=== PATIENT | female | born 1960 | race Caucasian/White ===

== ENCOUNTER 2021-02-09 08:50 | Outpatient (REF) | payer OTHER, SELFPAY ==
--- NOTE | ~2021-02-09 | MM_ITS ---
EXAMINATION: MM SCREENING DIGITAL BREAST TOMOSYNTHESIS, BILATERAL CLINICAL INFORMATION: Screening. Asymptomatic. The lifetime risk of breast cancer based on the Tyrer-Cuzick Model is 5%. COMPARISON: Mammography: 09/24/2017, 07/27/2016, 09/15/2014 TECHNIQUE: Digital breast tomosynthesis is performed in both the craniocaudal and mediolateral oblique views along with computer-aided detection (CAD). Synthesized 2D images are generated from the tomosynthesis. FINDINGS: There are scattered areas of fibroglandular density (ACR BI-RADS breast composition Category b). There are no significant masses, abnormal calcifications, or other abnormalities. Parenchymal pattern is similar to prior studies. No developing density. The axilla and skin contours are unremarkable. No significant changes. MM/MM tomosynthesis screening BI IMPRESSION: No mammographic evidence of malignancy. ASSESSMENT: BI-RADS 1: Negative RECOMMENDATION: Routine annual mammography screening. This patient's information was entered into a reminder system with a target due date for their next mammogram.
--- NOTE | ~2021-02-09 | MM_ITS ---
EXAMINATION: BONE DENSITOMETRY CLINICAL INDICATION: Menopause. COMPARISON: This is the patient's baseline examination. TECHNIQUE: Using a [employer] DXA System (software version: 13.1) manufactured by [employer], dual-energy x-ray absorptiometry was performed of the lumbar spine and left hip. The images are of good technical quality. Summary results are attached. FINDINGS: AP SPINE L1-L4: BMD 0.862 g/cm2, Z-score -1.6, T-score -2.7, osteoporosis. LEFT FEMUR, NECK: BMD 0.883 g/cm2, Z-score 0.1, T-score -1.1, osteopenia. LEFT FEMUR, TOTAL: BMD 0.888 g/cm2, Z-score -0.1, T-score -0.9, normal. IDENTIFIED RISK FACTORS: Menopause, hysterectomy. HISTORY OF FRACTURE: None listed. MEDICATIONS: None listed. MM/XR DEXA axial skeleton IMPRESSION: 1. DIAGNOSIS: Osteoporosis based on the lowest T-score value of -2.7 in the lumbar spine applying World Health Organization criteria. 2. 10-YEAR FRACTURE RISK PREDICTION, FRAX: Major osteoporotic fracture (clinical spine, forearm, hip or shoulder) 6.8%. Hip fracture 0.4%. 3. Treatment Recommendations: NOF guidelines recommend consideration for treatment in postmenopausal women and men age 50 and older presenting with the following: -A hip or vertebral (clinical or morphometric) fracture. -T-score less than or equal to -2.5 at the femoral neck or spine after appropriate evaluation to exclude secondary causes. -Low bone mass at the hip or spine and a 10-year fracture probability by FRAX of greater than or equal to 3% for hip fracture or greater than or equal to 20% for major osteoporotic fracture based on the [place] adapted WHO algorithm. 4. Other Recommendations: All treatment decisions require clinical judgment and consideration of individual patient factors, including patient preferences, comorbidities, previous drug use, risk factors not captured in the FRAX model (e.g. frailty, falls, vitamin D deficiency, increased bone turnover, interval significant decline in bone density) and possible under or overestimation of fracture risk by FRAX. Additional medical evaluation for secondary cause of low bone mineral density may be appropriate. FUTURE SCAN RECOMMENDATION: People with diagnosed cases of osteoporosis or at high risk for fracture should have regular bone mineral density tests. For patients eligible for Medicare, routine testing is allowed once every 2 years. The testing frequency can be increased to one year for patients who have rapidly progressing disease, those who are receiving or discontinuing medical therapy to restore bone mass, or have additional risk factors.
== END 2021-02-09 08:51 | disposition home or self-care (01) ==
LOC: HO.MAMMO 08:50
PROVIDERS: Visit Provider Nurse Practitioner Family
DX: Z12.31 Encounter for screening mammogram for malignant neoplasm of breast (principal); Z13.820 Encounter for screening for osteoporosis; M81.0 Age-related osteoporosis without current pathological fracture; Z78.0 Asymptomatic menopausal state; Z98.890 Other specified postprocedural states
CPT/HCPCS: 77063; 77067; 77080

== ENCOUNTER 2022-05-30 08:37 | Outpatient (REF) | payer OTHER, SELFPAY ==
--- NOTE | ~2022-05-30 | MM_ITS ---
EXAMINATION: MM SCREENING DIGITAL BREAST TOMOSYNTHESIS, BILATERAL CLINICAL INFORMATION: Screening. Asymptomatic. The lifetime risk of breast cancer based on the Tyrer-Cuzick Model is 5%. COMPARISON: Mammography: 02/09/2021, 09/24/2017, 07/27/2016 TECHNIQUE: Digital breast tomosynthesis is performed in both the craniocaudal and mediolateral oblique views along with computer-aided detection (CAD). Synthesized 2D images are generated from the tomosynthesis. FINDINGS: There are scattered areas of fibroglandular density (ACR BI-RADS breast composition Category b). There are no significant masses, abnormal calcifications, or other abnormalities. The axilla and skin contours are unremarkable. There are no significant changes from prior studies. MM/MM tomosynthesis screening BI IMPRESSION: No mammographic evidence of malignancy. ASSESSMENT: BI-RADS 1: Negative RECOMMENDATION: Routine annual mammography screening. This patient's information was entered into a reminder system with a target due date for their next mammogram.
== END 2022-05-30 08:38 | disposition home or self-care (01) ==
LOC: HO.MAMMO 08:37
PROVIDERS: PCP Nurse Practitioner Family; Visit Provider Nurse Practitioner Family
DX: Z12.31 Encounter for screening mammogram for malignant neoplasm of breast (principal)
CPT/HCPCS: 77063; 77067

== ENCOUNTER 2022-09-02 10:58 | Emergency (ER) | payer OTHER, SELFPAY ==
--- NOTE | ~2022-09-02 | XR_ITS ---
EXAMINATION: XR SHOULDER, RIGHT CLINICAL INFORMATION: Fracture COMPARISON: None TECHNIQUE: AP external rotation, Grashey, scapular Y, views of the right shoulder. FINDINGS: Mildly displaced fracture through the right humeral neck. Adjacent clavicle and scapula are intact. Included ribs and lungs are clear. Humeral diaphysis and distal humerus are intact. XR/XR shoulder RT min 2V IMPRESSION: Mildly displaced fracture of the right humeral neck.
[2022-09-02 11:04] VITALS: BP 104/69; PULSE 70; O2SAT 96
[2022-09-02 11:08] VITALS: BP 107/68; PULSE 60; RESP 16; TEMP 36.4; O2SAT 94
--- NOTE | 2022-09-02 11:08 | ED_ITS ---
HPI - Extremity Injury (Upper) General Chief Complaint: Fall Stated Complaint: R ARM/HEAD PAIN S/P SLIP/FALL ON ICE Time Seen by Provider: 09/02/22 11:07 Source: patient Mode of arrival: EMS Limitations: no limitations History of Present Illness HPI narrative: Patient was chasing her dog and she fell, patient has mid humerus pain. Patient fell on the grass complaint: injury to: right and arm Onset (ago): minute(s) Handedness: left Place: home Severity: moderate Related Data Previous Rx's Medication Instructions Recorded naproxen 500 mg tablet (Naprosyn) 500 mg PO BID #20 tabs 09/02/22 oxycodone 5 mg capsule 5 mg PO Q8H PRN pain #14 caps 09/02/22 Allergies Allergy/AdvReac Type Severity Reaction Status Date / Time No Known Allergies Allergy Verified 09/02/22 11:11 Review of Systems Review of Systems: Yes all other systems are reviewed and are negative Musculoskeletal: Comments: right shoulder pain Neurologic: Denies Sensory deficit (Neuro) [facility] Social History Social History Advance Directives: No Advance Directives Information Provided: Yes Physical Exam Vital Signs: Vital Signs: Last Vital Signs Temp 97.5 F 09/02/22 11:10 Pulse 59 09/02/22 11:10 Resp 20 09/02/22 11:10 BP 107/68 09/02/22 11:10 Pulse Ox 96 09/02/22 11:10 O2 Del Method 09/02/22 11:10 BMI result Body Mass Index 29.5 Const: General: healthy appearing Nutritional Appearance: average body habitus Orientation/consciousness: oriented to person and patient oriented x3 Limitations: no limitations HEENT: Head: Yes normal to inspection Ears: external ears normal General nose exam: Normal external nose present Mouth: Normal oral and palatal mucosa present and oropharynx normal Throat: Yes posterior oropharynx normal Eyes: General: appearance normal, both eyes and all related structures Neck: Other: supple Neck: Yes normal visual inspection Chest: Chest palpation & inspection: normal inspection of the chest Resp: Auscultation: clear to auscultation bilaterally Cardio: Jugular venous distension: no JVD Rate: regular rate Rhythm: regular rhythm Heart sounds: S1 normal heart sound present and S2 normal heart sound present GI: Inspection: Yes normal to inspection Palpation (GI): Soft to palpation, nontender and No hepatosplenomegaly present Auscultation: normal bowel sounds : General: Yes no CVA tenderness Back/Spine/Pelvis: Back: no CVA tenderness Skin: General skin exam: no rashes or lesions noted Neuro: General: oriented to person and patient oriented x3 Cranial nerves: Yes CN's II-XII intact bilaterally Motor exam (neuro): 5/5 motor strength present throughout Sensory Exam: No Sensory deficit (Neuro) Extrem: Other: tenderness to right humerus and right shoulder Psych: Appearance: grossly normal Course Reevaluation(s) Reevaluation #1: patient with shoulder fracture, proximal humerus. Place in sling and dc home Time: 11:58 Medical Decision Making Differential Diagnosis Differential Diagnoses: The differential diagnosis associated with the presentation includes (humerus fracture, proximal humerus fracture, shoulder fracture, arm contusion) Consult Healthcare Provider Management of the patient was discussed with: Art Supervisor (ortho RUSSEL Rodas) Independent Interpretation I performed an independent interpretation of an: Plain X-Ray (proximal humerus fracture) Discharge Plan Discharge Clinical Impression: Fracture of shoulder Patient Disposition: Home, Self-Care Instructions: Arm Fracture in Adults (ED), How to Use a Sling (ED) Prescriptions: New naproxen [Naprosyn] 500 mg tablet 500 mg PO BID Qty: 20 0RF oxycodone 5 mg capsule 5 mg PO Q8H PRN (Reason: pain) Qty: 14 0RF Rx Instructions: Partial Fill upon patient request. Referrals: [facility] [Provider Group] - 5 days
[2022-09-02 11:10] VITALS: BP 107/68; PULSE 59; RESP 20; TEMP 36.4; O2SAT 96; BMI 29.5
[2022-09-02] MEDS: Morphine Sulfate 10 MG/ML CARTRIDGE 5 MG IM (12:11)
--- NOTE | 2022-09-02 12:23 | PC.NURSE ---
pt medicated per provider order for 10/10 pain, sling/swath applied by tech.
== END 2022-09-02 12:24 | disposition home or self-care (01) ==
PROVIDERS: Emergency Provider Emergency Medicine; PCP Nurse Practitioner Family
DX: S42.211A Unspecified displaced fracture of surgical neck of right humerus, initial encounter for closed fracture (principal); W01.0XXA Fall on same level from slipping, tripping and stumbling without subsequent striking against object, initial encounter; Y93.02 Activity, running; Y92.017 Garden or yard in single-family (private) house as the place of occurrence of the external cause; Y99.9 Unspecified external cause status
CPT/HCPCS: 73030; 96372; 99283; 99284; J2270

== ENCOUNTER → 2022-09-05 08:36 | Outpatient (BNVA) | payer OTHER, SELFPAY | PROVIDERS: PCP Nurse Practitioner Family; Visit Provider Physician Assistant | DX: Z13.89 Encounter for screening for other disorder (principal) ==

== ENCOUNTER 2022-10-03 09:57 | Outpatient (REF) | payer OTHER, SELFPAY ==
--- NOTE | ~2022-10-03 | XR_ITS ---
EXAMINATION: XR SHOULDER, RIGHT CLINICAL INFORMATION: Pain in the right shoulder. COMPARISON: Radiograph of the right shoulder 09/02/2022. TECHNIQUE: Two views of the right shoulder. FINDINGS: Redemonstration of a displaced and impacted right humeral neck fracture, not significantly changed. The AC joint appears intact. No abnormal soft tissue calcifications. XR/XR shoulder RT min 2V IMPRESSION: Redemonstration of a displaced and impacted right humeral neck fracture, not significantly changed.
== END 2022-10-03 09:58 | disposition home or self-care (01) ==
LOC: HO.HOSX 09:57
PROVIDERS: Visit Provider Physician Assistant
DX: S42.211D Unspecified displaced fracture of surgical neck of right humerus, subsequent encounter for fracture with routine healing (principal); W19.XXXD Unspecified fall, subsequent encounter
CPT/HCPCS: 73030

== ENCOUNTER 2022-11-14 07:57 | Outpatient (REF) | payer OTHER, SELFPAY ==
--- NOTE | ~2022-11-14 | XR_ITS ---
EXAMINATION: XR SHOULDER, RIGHT CLINICAL INFORMATION: Fracture COMPARISON: Previous x-ray AugustSeptember 2022 TECHNIQUE: Two views of the right shoulder. FINDINGS: Healing impacted transverse right humeral neck fracture. Fracture line appears more indistinct and there is a some increasing bony callus formation. Glenohumeral and acromioclavicular joint spaces are normal. Soft tissues are normal. XR/XR shoulder RT min 2V IMPRESSION: Healing right humeral neck fracture.
== END 2022-11-14 07:58 | disposition home or self-care (01) ==
LOC: HO.HOSX 07:57
PROVIDERS: PCP Nurse Practitioner Family; Visit Provider Physician Assistant
DX: S42.211D Unspecified displaced fracture of surgical neck of right humerus, subsequent encounter for fracture with routine healing (principal); X58.XXXD Exposure to other specified factors, subsequent encounter
CPT/HCPCS: 73030

== ENCOUNTER 2022-12-20 07:00 | Outpatient (RCR) | payer OTHER, SELFPAY ==
--- NOTE | 2022-10-26 11:52 | MHC.PT.EP ---
[facility] [place] Office [place] Office [place] Office [address] Tatum Mcneal [address] [phone] F: [phone] F: [phone] F: [phone] F: [phone] Physical Therapy Plan of Care Date of Evaluation: Date of Surgery: N/A Diagnosis: fracture of neck of R humerus (RC) Assessment: pt is a 61 y/o female presenting to physical therapy w/ referring diagnosis of fracture of neck of humerus. pt's most recent image showed no change in healing and showed persistent dislocation and impaction of humeral fx. At this time, the plan is non-operative per the orthopedic PA; however, unsure how well she will progress w/ PT intervention at this time. Will continue to monitor and treat or refer as appropriate. Impairments include pain, decreased range of motion, decreased strength, impaired functional mobility, impaired postural awareness, and altered ambulation mechanics. pt is a fair candidate for skilled PT due to age, potential remediation of impairments, typical disease/condition progression and prognosis, comorbidities, and motivation. pt would benefit from skilled PT intervention to provide a tailored strengthening and stretching exercise program, functional training, gait training, postural re-training, neuromuscular re-education, modalities as needed for pain, equipment safety demonstration. Frequency and Duration: The patient will be seen 2x/wk for 6 wks Short Term Goals: pt will be I w/ HEP to promote self-management of condition. pt will improve L shoulder flexion AAROM to 90* to promote ease in reaching for objects on her countertop. pt will recall fracture precautions as assessed by teachback to reduce risk of progression of dislocation and improve bony healing. Nursery Attendant Goals: pt will report a statistically significant improvement in self-reported outcome measure, SPADI, to promote return to PLOF. pt will improve R shoulder strength to at least 4/5 to promote ease in turbine assembler and meal prep. pt will demo functional ER to at least top of head to promote ease in upper body ADLs. Treatment Plan: Modalities to reduce pain, spasms and effusion. Manual therapy to restore motion and function. Therapeutic exercise to improve strength and flexibility. Neuromuscular re-education for posture and balance. Therapeutic activities to return to functional activities of daily living. Electronically signed by: Kathy Herbert PT, DPT Please sign and return to therapist. Thank you for your referral.
--- NOTE | 2023-01-17 15:40 | MHC.PT.DC ---
[facility] [place] Office [place] Office [place] Office [address] Tatum Mcneal [address] [phone] F: [phone] F: [phone] F: [phone] F: [phone] Physical Therapy Discharge Report Diagnosis: fracture of neck of R humerus (RC) Date of Surgery: N/A Date of Evaluation: 10/26/22 Date of Discharge: 01/17/23 Treatments to Date: 7 Cancellations to Date: 10 No Shows to Date: 0 Discharge Status: Visit Non-compliance Discharge Summary: The patient has cancelled a total of 10 visits with multiple weeks inbetween the visits she did attend. She has poor glenohumeral mechanics which were a result of limited range of motion, weakness of shoulder and periscapular musculature, and poor attendance/compliance with exercises. She was educated multiple times of the importance of compliance but continued to have poor attendance. She has not been seen in nearly a month and is being discharged at this time. If a new referral for PT is to be placed in the future her willingness and availability to comply with her attendance should be confirmed first. Electronically signed by: Kathy Newton PT, DPT Please sign and return to therapist. Thank you for your referral.
== END 2023-01-17 15:40 | disposition home or self-care (01) ==
LOC: HO.PT 07:00
PROVIDERS: PCP Nurse Practitioner Family; Visit Provider Physician Assistant
DX: S42.211D Unspecified displaced fracture of surgical neck of right humerus, subsequent encounter for fracture with routine healing (principal)
CPT/HCPCS: 97110; 97140; 97161

== ENCOUNTER 2022-12-26 07:37 | Outpatient (REF) | payer OTHER, SELFPAY | END 2022-12-26 07:38 | disposition home or self-care (01) | LOC: HO.HOSX 07:37 | PROVIDERS: Visit Provider Physician Assistant | DX: M25.511 Pain in right shoulder (principal) | CPT/HCPCS: 73030 ==

== ENCOUNTER 2023-02-05 17:25 | Outpatient (REF) | payer OTHER, SELFPAY | END 2023-02-05 17:26 | disposition home or self-care (01) | LOC: HO.HOSX 17:25 | PROVIDERS: Visit Provider Physician Assistant | DX: Z13.89 Encounter for screening for other disorder (principal) ==

== ENCOUNTER 2023-02-06 08:07 | Outpatient (AMB) | payer OTHER, SELFPAY ==
[2023-02-06 08:11] VITALS: BMI 29.5
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
== END 2023-02-06 08:55 | disposition home or self-care (01) ==
PROVIDERS: PCP Nurse Practitioner Family; Visit Provider Physician Assistant
DX: S42.211D Unspecified displaced fracture of surgical neck of right humerus, subsequent encounter for fracture with routine healing (principal)
CPT/HCPCS: 99213

== ENCOUNTER 2023-02-06 08:07 | Outpatient (REF) | payer OTHER, SELFPAY ==
--- NOTE | ~2023-02-06 | XR_ITS ---
EXAMINATION: XR SHOULDER, RIGHT CLINICAL INFORMATION: Pain in unspecified shoulder COMPARISON: Right shoulder 12/26/2022 TECHNIQUE: AP neutral, Grashey and axillary views of the right shoulder. FINDINGS: Healing impacted transverse fracture of the right humeral neck is again noted. Slight increase in degree of callus formation. No significant change in alignment given differences in technique and positioning. XR/XR shoulder RT min 2V IMPRESSION: Healing right shoulder fracture.
== END 2023-02-06 08:08 | disposition home or self-care (01) ==
LOC: HO.HOSX 08:07
PROVIDERS: PCP Nurse Practitioner Family; Visit Provider Physician Assistant
DX: S42.211A Unspecified displaced fracture of surgical neck of right humerus, initial encounter for closed fracture (principal)
CPT/HCPCS: 73030

== ENCOUNTER 2023-02-21 08:51 | Outpatient (AMB) | payer OTHER, SELFPAY ==
[2023-02-21 09:02] VITALS: BMI 29.5
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
== END 2023-02-21 09:32 | disposition home or self-care (01) ==
PROVIDERS: PCP Nurse Practitioner Family; Visit Provider Physical Medicine & Rehabilitation
DX: M75.21 Bicipital tendinitis, right shoulder (principal); S46.219A Strain of muscle, fascia and tendon of other parts of biceps, unspecified arm, initial encounter; S46.019A Strain of muscle(s) and tendon(s) of the rotator cuff of unspecified shoulder, initial encounter; S42.211A Unspecified displaced fracture of surgical neck of right humerus, initial encounter for closed fracture
CPT/HCPCS: 99204

== ENCOUNTER → 2023-02-21 08:51 | Outpatient (BNVA) | payer OTHER, SELFPAY | PROVIDERS: PCP Nurse Practitioner Family; Visit Provider Physical Medicine & Rehabilitation ==

== ENCOUNTER 2023-03-15 10:40 | Outpatient (AMB) | payer OTHER, SELFPAY ==
--- NOTE | 2023-03-15 10:52 | MHC.OFFVIS ---
Intake Vital Signs 03/15/23 10:56 Height 5 ft 1 in Weight 156 lb BMI 29.5 Intake Visit Reasons: OV - RT shoulder fx, DOI 09/02/22 Intake Note: Naomi 62 yr old female presents today for her MRI review of her right shoulder to rule out biceps tear and RTC strain. Allergies No Known Allergies Allergy (Verified 03/15/23 10:56) Medication List - Last Reconciled 03/15/23 by Ada Pritchett MD lorazepam 0.5 mg PO BID PRN HPI HPI Comments History of Present Illness Details Left handed. Right humeral fracture since August 2022. Still limited range of motion with pain on biceps area. Noted biceps for more prominent on right than left. Here for MRI review which confirmed complete tear of right biceps proximally. Also showed partial tear right infraspinatus. Even fracture was healed. 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 MSK: Inspection reveals appropriate head and neck positioning. No pain with palpation over the neck musculature. No tenderness over trapezius. Tenderness over right biceps tendon insertion proximally. Right biceps appears popped out as compared to left. Cervical ROM was full. Spurling's sign negative. Right shoulder ROM still limited on abduction and external rotation. No ligamentous laxity or crepitance. No increased effusion. Empty can test is slightly positive on right. Drop arm test is deferred. Speed's test is positive in right. Hawkin's test is positive and. Strength is 5/5 in all muscle groups tested although limited in right shoulder due to pain. No increased tone noted. Neurological: Neurologic examination of the upper and lower extremities was nonfocal with intact sensation, muscle stretch reflexes and without focal motor deficits . Hoover?s negative bilaterally. Gait is non-antalgic without loss of balance. Results Reviewed Results Reviewed: Independently reviewed MRI images through [facility]. Complete tear of biceps proximally confirmed. Assessment & Plan Assessment & Plan (1) Biceps tendinitis of right shoulder: Code(s): M75.21 - Bicipital tendinitis, right shoulder (2) Biceps muscle tear: Code(s): S46.219A - Strain of muscle, fascia and tendon of other parts of biceps, unspecified arm, initial encounter (3) Rotator cuff strain: Code(s): S46.019A - Strain of muscle(s) and tendon(s) of the rotator cuff of unspecified shoulder, initial encounter (4) Fracture of neck of right humerus: Comment: 09/02/2022 Code(s): S42.211A - Unspecified displaced fracture of surgical neck of right humerus, initial encounter for closed fracture Plan MRI confirms right complete biceps tear, partial tear of infraspinatus, healed humeral fracture. Per discussion with our orthopedic surgeon, this biceps tear is treated non surgically. We need to give several months for further improvement of range of motion. Referring her to occupational therapy which patient is agreeable to. OT to work on range of motion within pain-free limits. Consider gentle active assisted strengthening. Assessment and plan discussed with patent, and patient was agreeable. All questions were answered thoroughly. Follow-up 3 months. Orders: Orders OT Evaluation and Treatment Today S42.211A - Unspecified displaced fracture of surgical neck of right humerus, initial encounter for closed fracture, S46.019A - Strain of muscle(s) and tendon(s) of the rotator cuff of unspecified shoulder, initial encounter, S46.219A - Strain of muscle, fascia and tendon of other parts of biceps, unspecified arm, initial encounter Coding Level of Care Code Est Pt Level 3 (84713) Diagnoses Biceps tendinitis of right shoulder M75.21 Biceps muscle tear S46.219A Rotator cuff strain S46.019A Fracture of neck of right humerus S42.211A
[2023-03-15 10:56] VITALS: BMI 29.5
== END 2023-03-15 11:59 | disposition home or self-care (01) ==
PROVIDERS: PCP Nurse Practitioner Family; Visit Provider Physical Medicine & Rehabilitation
DX: S46.211A Strain of muscle, fascia and tendon of other parts of biceps, right arm, initial encounter (principal); M75.21 Bicipital tendinitis, right shoulder; S46.011A Strain of muscle(s) and tendon(s) of the rotator cuff of right shoulder, initial encounter
CPT/HCPCS: 99213

== ENCOUNTER → 2023-03-15 10:40 | Outpatient (BNVA) | payer OTHER, SELFPAY | PROVIDERS: PCP Nurse Practitioner Family; Visit Provider Physical Medicine & Rehabilitation ==

== ENCOUNTER 2023-03-22 12:45 | Outpatient (AMB) | payer OTHER, SELFPAY ==
--- NOTE | 2023-03-22 12:52 | A.OFFVIS_ITS ---
Intake Intake Visit Reasons: OV-RT shoulder fx, DOI 09/02/22 Intake Note: Naomi is a 62 year old left hand dominant female who presents today for a follow up of right shoulder fx, DOI 09/02/22. Patient reports that she is still having pain in the bicep, and has since the DOI 09/02/22. An MRI was done at [facility] which showed. She reports a numbness/stabbing pain in the arm and forarm. She has increased pain with above the head ROM. Allergies No Known Allergies Allergy (Verified 03/15/23 10:56) HPI OV-RT shoulder fx, DOI 09/02/22 HPI Details This is a 62-year-old woman with right shoulder pain. She sustained a proximal humerus fracture about 7 months ago and has been recovering slowly. An MRI was obtained and showed a proximal biceps rupture. This concerned her and she felt like it was not addressed early enough. She complains of global shoulder pain as well as pain extending into the anterior biceps. Six she has been doing physical therapy but stopped after the MRI was obtained. 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 +H/N Office Procedures Joint Injection/Drain Joint Injection/Drain Details: Injected 1 mL of Decadron and 3 mL 1% lidocaine and 3 mL of 0.25% Marcaine. Site was prepped using aseptic technique. Patient tolerated the procedure well. Primary Site: right shoulder Approach Used: posterolateral Coding 23193 - Large joint Procedure code (CPT) selection complete Results Reviewed Results Reviewed: 03/22/23 13:22 BUPivacaine MPF 0.25 % [Sensorcaine-MPF 0.25% 10 ML] 10 ml .ROUTE .STK-MED ONE Lidocaine HCl 2 % MPF [Xylocaine 2 % MPF] 5 ml .ROUTE .STK-MED ONE dexAMETHasone sod phosphate [Decadron] 4 mg .ROUTE .STK-MED ONE I personally reviewed relevant radiographs. Healing proximal humerus 2 part fracture with varus impaction Assessment & Plan Assessment & Plan (1) Fracture of neck of right humerus: Comment: 09/02/2022 Code(s): S42.211A - Unspecified displaced fracture of surgical neck of right humerus, initial encounter for closed fracture Plan: Seven months status post fracture proximal humerus right shoulder. Overall she is doing well. An MRI demonstrated proximal biceps rupture. I reviewed this with her. I explained that this is not a surgical finding and that it will improve and that there is no surprises associated with proximal humerus fracture and that she should continue focusing on range of motion and shoulder mechanics. Because she is having some motion night pain in a subacromial region I did inject her subacromial space on the right. Coding Level of Care Code Est Pt Level 4 (14263) Diagnoses Fracture of neck of right humerus S42.211A CPT Codes Coding - 99380 Large joint: 76796 - Large joint ([id number])
== END 2023-03-22 13:40 | disposition home or self-care (01) ==
PROVIDERS: PCP Nurse Practitioner Family; Visit Provider Orthopaedic Surgery
DX: S42.211A Unspecified displaced fracture of surgical neck of right humerus, initial encounter for closed fracture (principal)
CPT/HCPCS: 20610; 99214

== ENCOUNTER → 2023-03-22 12:45 | Outpatient (BNVA) | payer OTHER, SELFPAY | PROVIDERS: PCP Nurse Practitioner Family; Visit Provider Orthopaedic Surgery | DX: M25.511 Pain in right shoulder (principal); S42.211D Unspecified displaced fracture of surgical neck of right humerus, subsequent encounter for fracture with routine healing | CPT/HCPCS: 20610; J1100 ==

== ENCOUNTER 2023-06-04 08:29 | Outpatient (REF) | payer OTHER, SELFPAY | END 2023-06-04 08:30 | disposition home or self-care (01) | LOC: HO.MAMMO 08:29 | PROVIDERS: PCP Nurse Practitioner Family; Visit Provider Nurse Practitioner Family | DX: Z12.31 Encounter for screening mammogram for malignant neoplasm of breast (principal) | CPT/HCPCS: 77063; 77067 ==

== ENCOUNTER → 2023-06-04 08:45 | Outpatient (BNV) | payer OTHER, SELFPAY | PROVIDERS: PCP Nurse Practitioner Family; Visit Provider Radiology Diagnostic Radiology | DX: Z12.31 Encounter for screening mammogram for malignant neoplasm of breast (principal) | CPT/HCPCS: 77063; 77067 ==

== ENCOUNTER 2024-04-26 11:11 | Emergency (ER) | payer OTHER, SELFPAY ==
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
[2024-04-26 11:20] VITALS: BP 144/78; BP 149/80; PULSE 62; PULSE 70; RESP 18; O2SAT 98; BMI 38.7
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
[2024-04-26] MEDS: Ibuprofen 600 MG TABLET PO (11:56)
[2024-04-26 14:47] VITALS: BP 147/72; PULSE 69; RESP 18; TEMP 36.6; O2SAT 98
== END 2024-04-26 14:48 | disposition home or self-care (01) ==
PROVIDERS: Emergency Provider Emergency Medicine; PCP Student in an Organized Health Care Education/Training Program
DX: S09.90XA Unspecified injury of head, initial encounter (principal); S13.4XXA Sprain of ligaments of cervical spine, initial encounter; S43.401A Unspecified sprain of right shoulder joint, initial encounter; V43.52XA Car driver injured in collision with other type car in traffic accident, initial encounter; Y93.89 Activity, other specified; Y92.414 Local residential or business street as the place of occurrence of the external cause; Y99.9 Unspecified external cause status
CPT/HCPCS: 70450; 72125; 73030; 99284

== ENCOUNTER 2024-06-10 07:36 | Outpatient (REF) | payer OTHER, SELFPAY ==
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
== END 2024-06-10 07:37 | disposition home or self-care (01) ==
LOC: HO.MAMMO 07:36
PROVIDERS: PCP Student in an Organized Health Care Education/Training Program; Visit Provider Student in an Organized Health Care Education/Training Program
DX: Z12.31 Encounter for screening mammogram for malignant neoplasm of breast (principal)
CPT/HCPCS: 77063; 77067

== ENCOUNTER → 2024-06-10 08:00 | Outpatient (BNV) | payer OTHER, SELFPAY | PROVIDERS: PCP Student in an Organized Health Care Education/Training Program; Visit Provider Internal Medicine | DX: Z12.31 Encounter for screening mammogram for malignant neoplasm of breast (principal) | CPT/HCPCS: 77063; 77067 ==

== ENCOUNTER 2025-06-17 07:21 | Outpatient (REF) | payer OTHER, SELFPAY ==
--- NOTE | ~2025-06-17 | MM_ITS ---
EXAMINATION: MM SCREENING DIGITAL BREAST TOMOSYNTHESIS, BILATERAL CLINICAL INFORMATION: Screening. Asymptomatic. COMPARISON: Comparison made to multiple prior, most recent June 10, 2024, and most remote September 15, 2014. TECHNIQUE: Digital breast tomosynthesis is performed in mediolateral oblique and craniocaudal views along with computer-aided detection (CAD). Synthesized 2D images are generated from the tomosynthesis. FINDINGS: BREAST COMPOSITION: The breasts are heterogeneously dense, which may obscure small masses. BILATERAL BREASTS: No significant masses, suspicious calcifications or other abnormalities are seen in either breast. MM/MM tomosynthesis screening BI IMPRESSION: BILATERAL BREASTS: Negative, no mammographic evidence of malignancy. Normal interval follow-up is recommended in 12 months. ASSESSMENT: BI-RADS: Category 1: Negative RECOMMENDATION: Routine annual mammography screening. FOLLOW-UP: 1 year F/U This examination should not preclude the clinical evaluation of a suspicious palpable abnormality. This patient's information was entered into a reminder system with a target due date for their next mammogram. Electronically signed by: Sharri Barajas MD 06/17/2025 06:42 PM [facility] [place]
== END 2025-06-17 07:22 | disposition home or self-care (01) ==
LOC: HO.MAMMO 07:21
PROVIDERS: PCP Student in an Organized Health Care Education/Training Program; Visit Provider Student in an Organized Health Care Education/Training Program
DX: Z12.31 Encounter for screening mammogram for malignant neoplasm of breast (principal)
CPT/HCPCS: 77063; 77067

== ENCOUNTER → 2025-06-17 07:30 | Outpatient (BNV) | payer OTHER, SELFPAY | PROVIDERS: PCP Student in an Organized Health Care Education/Training Program; Visit Provider Radiology Body Imaging | DX: Z12.31 Encounter for screening mammogram for malignant neoplasm of breast (principal) | CPT/HCPCS: 77063; 77067 ==